=== PATIENT | female | born 1975 | race African-American/Black ===

== ENCOUNTER 2018-12-10 10:25 | Emergency (ER) | payer SELFPAY ==
[~2018-12-10] VITALS: Ht 160 cm; Wt 53.0 kg
[2018-12-10] MEDS ORDERED: ACETAMINOPHEN 325MG TABLET PO ONE (14:30)
[2018-12-10 15:58] VITALS: BP 145/94
== END 2018-12-10 15:58 | disposition home or self-care (01) ==
LOC: ER 10:40
DX: S63.616A Unspecified sprain of right little finger, initial encounter (principal); M20.031 Swan-neck deformity of right finger(s); F12.10 Cannabis abuse, uncomplicated; W18.39XA Other fall on same level, initial encounter; Y93.89 Activity, other specified; Y92.89 Other specified places as the place of occurrence of the external cause; Y99.8 Other external cause status
CPT/HCPCS: 29130; 73130; 99283

== ENCOUNTER 2023-08-14 22:03 | Emergency (ER) | payer SELFPAY ==
[~2023-08-14] VITALS: Ht 160 cm; Wt 54.0 kg
[2023-08-14 22:12] VITALS: TEMP 98.2; O2SAT 100
[2023-08-14] MEDS ORDERED: PSEU120T56 MT ×2 (23:58)
[2023-08-15 00:11] VITALS: BP 182/121; PULSE 91; RESP 18
[2023-08-15] MEDS ORDERED: GUAI-453 MT (00:16)
== END 2023-08-15 00:17 | disposition home or self-care (01) ==
LOC: ER 22:19
DX: R09.81 Nasal congestion (principal); F12.90 Cannabis use, unspecified, uncomplicated; R09.82 Postnasal drip
CPT/HCPCS: 99282

== ENCOUNTER 2023-08-15 07:43 | Emergency (ER) | payer SELFPAY ==
[~2023-08-15] VITALS: Ht 165.1 cm; Wt 57.0 kg
[~2023-08-15 07:43] MED LIST: GUAI-453 MT; PSEU120T56 MT
[2023-08-15 07:48] VITALS: BP 173/114; RESP 20; TEMP 98.4; O2SAT 99
[2023-08-15 08:50] VITALS: PULSE 89
== END 2023-08-15 11:06 | disposition home or self-care (01) ==
LOC: ER 07:43
DX: I10 Essential (primary) hypertension (principal); F12.10 Cannabis abuse, uncomplicated
CPT/HCPCS: 99281